=== PATIENT | male | born 1985 | race African-American/Black ===

== ENCOUNTER 2017-11-07 06:28 | Emergency (ER) | payer SELFPAY ==
--- NOTE | 2017-11-07 08:34 | ED Physician Documentation ---
History of Present Illness - Stated complaint Stated Complaint: LUMP ON RT CHEST AREA - Chief complaint Chief Complaint: Wound - Additonal information Additional information: hx from pt 32 male to ED for a mass to R breast - duration unknown but noticed today otherwise feels well Review of Systems Constitutional: denies: Fever, Chills Cardiac: reports: Other (ST mass R breast) PD PAST MEDICAL HISTORY - Past Medical History Past Medical History: Yes Cardiovascular: None Respiratory: None Endocrine/Autoimmune: None Psych: Depression, Schizophrenia - Past Surgical History Past Surgical History: No - Present Medications Home Medications: Ambulatory Orders Medication Instructions Recorded Confirmed [place] Aspartate [Lithate] 12/30/14 07/22/15 chlorproMAZINE [Thorazine] 07/22/15 07/22/15 - Allergies Allergies/Adverse Reactions: Allergies Allergy/AdvReac Type Severity Reaction Status Date / Time No Known Drug Allergies Allergy Verified 11/07/17 06:39 - Social History Does the pt smoke?: Yes Smoking Status: Current every day smoker Does the pt drink ETOH?: Yes Does the pt have substance abuse?: Yes - Immunizations Immunizations are current?: No Immunizations: TDAP >10years/unknown PD ED PE NORMAL - Vitals Vital signs reviewed: Yes - Neck Neck: Supple, no meningeal sign - Cardiac Cardiac: RRR - Respiratory Respiratory: No respiratory distress, Other (small approx [address] mass under aerolea R breast non tender no erythema, no nipple dc, no clavicular or axillar adenopathy) Results - Vitals Vitals: Vital Signs - 24 hr 11/07/17 11/07/17 11/07/17 06:37 09:25 09:49 Temperature 37.0 C Heart Rate 90 79 75 Respiratory 14 18 18 Rate Blood Pressure 136/94 H 133/94 H 128/93 H O2 Saturation 99 94 97 Oxygen O2 Source Room air PD MEDICAL DECISION MAKING - ED course ED course: long ER visit 09/09 I was occupied with another critical pt Departure - Departure Disposition: 01 Home, Self Care Clinical Impression: Gynecomastia, male Condition: Good Follow-Up: Donaldo Sloan MD [Provider Admit Priv/Credential] - Comments: According to the radiologist this mass appears benign As long as it does not change in size or become red warm swollen or painful you do not need to worry about it If it changed or enlarges in any way, you will need to follow up with the surgical clinic for further evaluation such as a biopsy
--- NOTE | 2017-11-07 12:35 | Ultrasound Report ---
RIGHT BREAST ULTRASOUND: 11/07/2017 HISTORY: Right breast mass increasing in size over the last four months. The patient is on antipsychotic medicines. TECHNIQUE: Real-time scanning by the county coroner with me present. Saved static images reviewed. FINDINGS: Corresponding to the subareolar right palpable lump, there is a 1.4 x 0.7 x 0.8 cm hypoechoic region with minimal vascularity having the appearance of gynecomastia. No suspicious cystic or solid mass or abnormal fluid collection is seen. IMPRESSION: Benign finding right breast. Suggest clinical followup. If area continues to enlarge suggest a surgical consult. TD: 11/07/2017 12:34 JOHNNIE
[2017-11-07 13:27] VITALS: BP 105/71
== END 2017-11-07 13:29 | disposition home or self-care (01) ==
LOC: ED 06:28
DX: N62 Hypertrophy of breast (principal)
CPT/HCPCS: 76642; 99282; 99283

== ENCOUNTER 2017-11-15 17:27 | Outpatient (CLI) | payer MEDICAID | END 2017-11-15 17:28 | disposition EMS.NT | LOC: EMS 17:27 | PROVIDERS: ATTEND Surgery | DX: S01.81XA Laceration without foreign body of other part of head, initial encounter (principal); Y04.2XXA Assault by strike against or bumped into by another person, initial encounter ==

== ENCOUNTER 2017-11-15 21:21 | Emergency (ER) | payer MEDICAID ==
[2017-11-15] MEDS ORDERED: LIDOCAINE 1%-EPI 1:100000 20 ML MDV SUBQ STA (23:52)
[2017-11-15] MEDS ORDERED: OLANZapine ODT 5 MG TABLET TL STA (23:52)
[2017-11-16] MEDS ORDERED: IBUPROFEN 600 MG TABLET PO STA (00:03)
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
[2017-11-16 01:07] VITALS: BP 136/78
== END 2017-11-16 01:06 | disposition home or self-care (01) ==
LOC: ED 21:21
DX: S01.81XA Laceration without foreign body of other part of head, initial encounter (principal); Y04.8XXA Assault by other bodily force, initial encounter; F20.0 Paranoid schizophrenia; F17.200 Nicotine dependence, unspecified, uncomplicated
CPT/HCPCS: 12001; 99283; 99284; A9270

== ENCOUNTER 2017-12-24 04:51 | Outpatient (CLI) | payer MEDICAID | END 2017-12-24 04:52 | disposition critical access hospital (66) | LOC: EMS 04:51 | PROVIDERS: ATTEND Surgery | DX: R45.851 Suicidal ideations (principal); R45.850 Homicidal ideations | CPT/HCPCS: A0425; A0429 ==

== ENCOUNTER 2017-12-24 05:08 | Emergency (ER) | payer MEDICAID ==
[2017-12-24 05:53] LABS: BASOPHILS % (AUTO) 0.7 %; EOSINOPHILS % (AUTO) 0.8 %; LYMPHOCYTES % (AUTO) 64.1 %; MEAN CORPUSCULAR HEMOGLOBIN 29.8 pg (27.0-31.0); MEAN CORPUSCULAR HGB CONC 32.2 g/dL (32.0-36.0); MEAN CORPUSCULAR VOLUME 92.6 fL (80.0-94.0); MEAN PLATELET VOLUME 6.9 fL (7.4-11.4); MONOCYTES % (AUTO) 9.2 %; NEUTROPHILS % (AUTO) 25.2 %; PLT - PLATELET COUNT 281 10^3/uL (130-450); RED BLOOD COUNT 4.35 10^6/uL (4.70-6.10); RED CELL DISTRIBUTION WIDTH 15.3 % (12.0-15.0)
--- NOTE | 2017-12-24 05:54 | ED Physician Documentation ---
PD HPI MHE - Stated complaint Stated Complaint: MHE - Chief complaint Chief Complaint: MHE - History obtained from History obtained from: EMS - History of Present Illness Primary symptom: Suicidal ideation Timing - onset: Unknown - Additional information Additional information: was at [facility] tonight, said he was hearing voices and feeling suicidal and thus brought to ED for evaluation. On my evaluation of patient, he appears to be asleep and I cannot wake him with verbal or tactile stimuli; he thus does not contribute to my HPI or ROS. the triaging RN says that when he first arrived, he was talking with her, denied HI but confirmed SI and wants to be hospitalized. Review of Systems Unable to obtain: AMS PD PAST MEDICAL HISTORY - Past Medical History Past Medical History: Yes Cardiovascular: None Respiratory: None Neuro: None Endocrine/Autoimmune: None HEENT: None Psych: Depression, Schizophrenia - Past Surgical History Past Surgical History: No - Present Medications Home Medications: Ambulatory Orders Medication Instructions Recorded Confirmed [place] Aspartate [Lithate] 12/30/14 07/22/15 chlorproMAZINE [Thorazine] 07/22/15 07/22/15 OLANZapine ODT [Zyprexa Odt] 5 mg TL DAILY #10 tablet 11/16/17 - Allergies Allergies/Adverse Reactions: Allergies Allergy/AdvReac Type Severity Reaction Status Date / Time No Known Drug Allergies Allergy Verified 12/24/17 05:20 - Social History Does the pt smoke?: Yes Smoking Status: Current every day smoker Does the pt drink ETOH?: Yes Does the pt have substance abuse?: Yes - Immunizations Immunizations are current?: No Immunizations: TDAP >10years/unknown - POLST Patient has POLST: No PD ED PE NORMAL - Vitals Vital signs reviewed: Yes - General General: No acute distress, Well developed/nourished, Other (does not respond to verbal or tactile stimuli) - HEENT HEENT: PERRL, Moist mucous membranes - Cardiac Cardiac: RRR, No murmur - Respiratory Respiratory: No respiratory distress, Clear bilaterally - Neuro Eye Opening: To Pain Motor: Localizes to Pain Verbal: None GCS Score: 8 Results - Vitals Vitals: Vital Signs - 24 hr 12/24/17 12/24/17 12/24/17 05:13 06:26 06:40 Temperature 36.8 C Heart Rate 53 L Respiratory 16 16 15 Rate Blood Pressure 135/86 H O2 Saturation 98 12/24/17 12/24/17 12/24/17 08:26 11:29 15:13 Temperature 37 C 37.2 C 36.6 C Heart Rate 80 71 66 Respiratory 15 15 14 Rate Blood Pressure 116/75 123/73 112/69 O2 Saturation 97 98 97 12/24/17 12/24/17 17:50 21:54 Temperature 36.6 C 36.2 C L Heart Rate 70 56 L Respiratory 16 16 Rate Blood Pressure 104/65 109/75 O2 Saturation 100 98 Oxygen O2 Source Room air - Labs Labs: Laboratory Tests 12/24/17 12/24/17 12/24/17 05:40 05:40 06:54 WBC 3.0 L RBC 4.35 L Hgb 13.0 L Hct 40.3 L MCV 92.6 MCH 29.8 MCHC 32.2 RDW 15.3 H Plt Count 281 MPV 6.9 L Neut # Not Reportable Lymph # Not Reportable [place] # Not Reportable Eos # Not Reportable Baso # Not Reportable Absolute Nucleated RBC Not Reportable Total Counted 50 Band Neuts % (Manual) 0 Reactive Lymphs % (Man) 20 Abnorm Lymph % (Manual) 0 Nucleated RBC % Not Reportable Neutrophils # (Manual) 0.7 L Lymphocytes # (Manual) 1.8 Monocytes # (Manual) 0.4 Eosinophils # (Manual) 0.1 Basophils # (Manual) 0.0 Differential Comment MANUAL DIFFERENTIAL Manual Slide Review Indicated Platelet Estimate NORMAL (130-450,000) Platelet Morphology 1+ LARGE PLATELETS RBC Morph Micro Appear NORMAL APPEARANCE Sodium 138 Potassium 3.3 L Chloride 108 Carbon Dioxide 24 Anion Gap 6.0 BUN 9 Creatinine 0.8 Estimated GFR (MDRD) 136 Glucose 135 H Calcium 8.4 L Urine Color YELLOW Urine Clarity CLEAR Urine pH 6.0 Ur Specific [place] >=1.030 H Urine Protein NEGATIVE Urine Glucose (UA) NEGATIVE Urine Ketones NEGATIVE Urine Occult Blood LARGE H Urine Nitrite NEGATIVE Urine Bilirubin NEGATIVE Urine Urobilinogen 1 (NORMAL) Ur Leukocyte Esterase NEGATIVE Urine RBC 6-10 H Urine WBC 0-3 Ur Epithelial Cells FEW Transitional Ur Squamous Epith Cells RARE Squamous Urine Bacteria Few Urine Mucus Few Strands Ur Microscopic Review INDICATED Urine Culture Comments NOT INDICATED Salicylates < 6.0 Urine Opiates Screen NEGATIVE Ur Oxycodone Screen NEGATIVE Urine Methadone Screen NEGATIVE Ur Propoxyphene Screen NEGATIVE Acetaminophen < 10 L Ur Barbiturates Screen NEGATIVE Ur Tricyclics Screen NEGATIVE Ur Phencyclidine Scrn NEGATIVE Ur Amphetamine Screen POSITIVE H U Methamphetamines Scrn POSITIVE H U Benzodiazepines Scrn NEGATIVE Urine Cocaine Screen POSITIVE H U Cannabinoids Screen POSITIVE H Ethyl Alcohol < 5.0 PD MEDICAL DECISION MAKING - ED course Complexity details: reviewed old records, reviewed results, re-evaluated patient , considered differential ED course: during ED stay, patient became awake and alert (transitioned rapidly from his previous somnolence). medically cleared for SW consult. Case turned over to Dr. Worley at end of my shift (7 AM) pending SW evaluation. Departure - Departure Disposition: 65 Psych Hosp/Unit DC/Xfer Clinical Impression: Depression, Suicidal ideation Condition: Stable Discharge Date/Time: 12/24/17 21:51
[2017-12-24 06:00] LABS: ABNORMAL LYMPHS % (MANUAL) 0 %; BAND NEUTROPHILS % (MANUAL) 0 %
[2017-12-24 06:03] LABS: BUN - BLOOD UREA NITROGEN 9 mg/dL (6-20); CALCIUM 8.4 mg/dL (8.5-10.3); CARBON DIOXIDE - CO2 24 mmol/L (21-32); CHLORIDE 108 mmol/L (101-111); CREATININE 0.8 mg/dL (0.6-1.2); GFR - MDRD 136 (>89); GLUCOSE 135 mg/dL (70-100); SALICYLATE < 6.0 mg/dL; SODIUM 138 mmol/L (135-145)
[2017-12-24 06:04] LABS: ACETAMINOPHEN < 10 ug/mL (10-30)
[2017-12-24 06:22] LABS: EOSINOPHILS # (MANUAL) 0.1 10^3/uL (0-0.7); LYMPHOCYTES # (MANUAL) 1.8 10^3/uL (1.5-3.5); LYMPHOCYTES % (MANUAL) 40 %; MONOCYTES # (MANUAL) 0.4 10^3/uL (0.0-1.0); NEUTROPHILS # (MANUAL) 0.7 10^3/uL (1.5-6.6); NEUTROPHILS % (MANUAL) 24 %
[2017-12-24 06:24] LABS: DIFFERENTIAL COMMENT MANUAL DIFFERENTIAL; PLATELET ESTIMATE, MANUAL NORMAL (130-450,000) (NORMAL); PLATELET MORPHOLOGY 1+ LARGE PLATELETS (NORMAL); RBC MORPHOLOGY (MULTIPLE) NORMAL APPEARANCE (NORMAL)
[2017-12-24 07:00] LABS: MUDS CUTOFF CONCENTRATIONS CUTOFF CONC BELOW:
[2017-12-24 07:03] LABS: BILIRUBIN,URINE NEGATIVE (NEGATIVE); GLUCOSE, URINE (UA) NEGATIVE (NEGATIVE); KETONES,URINE (UA) NEGATIVE (NEGATIVE); LEUKOCYTE ESTERASE, URINE NEGATIVE (NEGATIVE); NITRITE,URINE NEGATIVE (NEGATIVE); OCCULT BLOOD,URINE LARGE (NEGATIVE); PROTEIN,URINE NEGATIVE (NEGATIVE); UROBILINOGEN,URINE 1 (NORMAL) E.U./dL (NORMAL)
[2017-12-24 07:04] LABS: CLARITY,URINE CLEAR (CLEAR)
[2017-12-24 07:11] LABS: SQUAMOUS EPITHELIAL CELL,UR RARE Squamous (<= Few)
[2017-12-24 07:12] LABS: BACTERIA,URINE Few /HPF (None Seen); EPITHELIAL CELLS,UR FEW Transitional /HPF (<= Few); MUCUS,URINE Few Strands
[2017-12-24 07:15] LABS: AMPHETAMINE SCREEN,URINE POSITIVE (NEGATIVE); BENZODIAZEPINES SCREEN, URINE NEGATIVE (NEGATIVE); COCAINE SCREEN URINE POSITIVE (NEGATIVE); METHADONE SCREEN, URINE NEGATIVE (NEGATIVE); METHAMPHETAMINES SCREEN, URINE POSITIVE (NEGATIVE); OPIATE SCREEN, URINE NEGATIVE (NEGATIVE); OXYCODONE SCREEN, URINE NEGATIVE (NEGATIVE); PROPOXYPHENE SCREEN, URINE NEGATIVE (NEGATIVE); TRICYCLIC ANTIDEPRESSANT,URINE NEGATIVE (NEGATIVE)
--- NOTE | 2017-12-24 16:44 | ED Physician Documentation ---
ED Addendum - Addendum Addendum: 12/24/17 16:43 Patient evaluated by DANII, and will be transferred to [facility]. Accepted by Alea VICKERS @[facility]. CHANCERA forms completed. Departure - Departure Disposition: 02 Transfer Acute Care Hosp Clinical Impression: Suicidal ideation Depression Qualifiers: Depression Type: unspecified Qualified Code(s): F32.9 - Major depressive disorder, single episode, unspecified Condition: Stable
[2017-12-24 21:56] VITALS: BP 109/75
== END 2017-12-24 21:51 ==
LOC: EDUNIT# → ED 05:08
DX: R45.851 Suicidal ideations (principal); R41.82 Altered mental status, unspecified; F32.9 Major depressive disorder, single episode, unspecified; F20.9 Schizophrenia, unspecified; F17.200 Nicotine dependence, unspecified, uncomplicated
CPT/HCPCS: 36415; 80048; 80306; 80307; 80320; 80329; 81001; 81003; 85025; 87086; 99284; 99285

== ENCOUNTER 2018-05-08 10:30 | Emergency (ER) | payer MEDICAID ==
[2018-05-08] MEDS ORDERED: AZITHROMYCIN 250 MG TABLET PO STA (12:24)
[2018-05-08] MEDS ORDERED: LITHIUM 150 MG CAPSULE PO STA (12:24)
[2018-05-08] MEDS ORDERED: cefTRIAXone 250 MG VIAL IM STA (12:24)
[2018-05-08] MEDS ORDERED: LIDOCAINE 1% 2 ML VIAL SUBQ ONE (12:24)
--- NOTE | 2018-05-08 12:27 | ED Physician Documentation ---
PD HPI MHE - Stated complaint Stated Complaint: MHE - Chief complaint Chief Complaint: MHE - History obtained from History obtained from: Patient - History of Present Illness Primary symptom: Homicidal ideation (This is a 33-year-old gentleman with history of schizophrenia who was dropped off and quickly left by his father for suicidal and homicidal ideation. He admits to both of these, but will not give me details. He also would like to go to [facility]. He has specific concerns about STDs and would like a shot for that. He denies urethral discharge, just high risk sexual activity.) Review of Systems Ten Systems: 10 systems reviewed and negative Constitutional: denies: Fever, Chills : denies: Dysuria, Frequency Skin: reports: Reviewed and negative PD PAST MEDICAL HISTORY - Past Medical History Cardiovascular: None Respiratory: None Neuro: None Endocrine/Autoimmune: None HEENT: None Psych: Depression, Schizophrenia - Past Surgical History Past Surgical History: No - Present Medications Home Medications: Ambulatory Orders Medication Instructions Recorded Confirmed [place] Aspartate [Lithate] 12/30/14 07/22/15 chlorproMAZINE [Thorazine] 07/22/15 07/22/15 OLANZapine ODT [Zyprexa Odt] 5 mg TL DAILY #10 tablet 11/16/17 - Allergies Allergies/Adverse Reactions: Allergies Allergy/AdvReac Type Severity Reaction Status Date / Time No Known Drug Allergies Allergy Verified 05/08/18 10:45 - Social History Does the pt smoke?: Yes Smoking Status: Current every day smoker Does the pt drink ETOH?: Yes Does the pt have substance abuse?: Yes - Family History Family history: reports: Non contributory - Immunizations Immunizations are current?: No Immunizations: TDAP >10years/unknown - POLST Patient has POLST: No PD ED PE NORMAL - Vitals Vital signs reviewed: Yes - General General: Alert and oriented X 3, Other (Tangential historian with slow speech. Decent eye contact. Tangential and talking about God and somewhat hypersexual.) - HEENT HEENT: PERRL, EOMI - Neck Neck: Supple, no meningeal sign, No bony TTP - Cardiac Cardiac: RRR, No murmur - Respiratory Respiratory: No respiratory distress, Clear bilaterally - Abdomen Abdomen: Normal bowel sounds, Soft, Non tender - Back Back: No CVA TTP, No spinal TTP - Derm Derm: Normal color, Warm and dry - Extremities Extremities: No deformity, No edema, No calf tenderness / cord - Neuro Neuro: Alert and oriented X 3, Normal speech Results - Vitals Vitals: Vital Signs - 24 hr 05/08/18 10:39 Temperature 36.5 C Heart Rate 110 H Respiratory 18 Rate Blood Pressure 156/96 H O2 Saturation 98 Oxygen O2 Source Room air - Labs Labs: Laboratory Tests 05/08/18 05/08/18 05/08/18 12:46 12:46 12:46 WBC 5.0 RBC 4.74 Hgb 14.8 Hct 43.1 MCV 90.8 MCH 31.1 H MCHC 34.3 RDW 14.0 Plt Count 170 MPV 7.4 Neut # (Auto) 2.2 Lymph # (Auto) 2.3 [place] # (Auto) 0.4 Eos # (Auto) 0.1 Baso # (Auto) 0.0 Absolute Nucleated RBC 0.01 Nucleated RBC % 0.1 Sodium 138 Potassium 3.5 Chloride 103 Carbon Dioxide 26 Anion Gap 9.0 BUN 12 Creatinine 1.0 Estimated GFR (MDRD) 104 Glucose 93 Calcium 9.2 Total Bilirubin 1.2 H AST 27 ALT 17 Alkaline Phosphatase 55 Total Protein 7.3 Albumin 4.9 Globulin 2.4 Albumin/Globulin Ratio 2.0 Lipase 34 TSH 0.87 Urine Color Urine Clarity Urine pH Ur Specific [place] Urine Protein Urine Glucose (UA) Urine Ketones Urine Occult Blood Urine Nitrite Urine Bilirubin Urine Urobilinogen Ur Leukocyte Esterase Ur Microscopic Review Urine Culture Comments Last Dose Date Last Dose Time Salicylates < 6.0 Urine Opiates Screen Ur Oxycodone Screen Urine Methadone Screen Ur Propoxyphene Screen Acetaminophen < 10 L Ur Barbiturates Screen Ur Tricyclics Screen Ur Phencyclidine Scrn Ur Amphetamine Screen U Methamphetamines Scrn U Benzodiazepines Scrn [place] Urine Cocaine Screen U Cannabinoids Screen Ethyl Alcohol < 5.0 05/08/18 05/08/18 12:46 13:15 WBC RBC Hgb Hct MCV MCH MCHC RDW Plt Count MPV Neut # (Auto) Lymph # (Auto) [place] # (Auto) Eos # (Auto) Baso # (Auto) Absolute Nucleated RBC Nucleated RBC % Sodium Potassium Chloride Carbon Dioxide Anion Gap BUN Creatinine Estimated GFR (MDRD) Glucose Calcium Total Bilirubin AST ALT Alkaline Phosphatase Total Protein Albumin Globulin Albumin/Globulin Ratio Lipase TSH Urine Color YELLOW Urine Clarity CLEAR Urine pH 6.0 Ur Specific [place] 1.020 Urine Protein NEGATIVE Urine Glucose (UA) NEGATIVE Urine Ketones NEGATIVE Urine Occult Blood NEGATIVE Urine Nitrite NEGATIVE Urine Bilirubin NEGATIVE Urine Urobilinogen 0.2 (NORMAL) Ur Leukocyte Esterase NEGATIVE Ur Microscopic Review NOT INDICATED Urine Culture Comments NOT INDICATED Last Dose Date UNK Last Dose Time UNK Salicylates Urine Opiates Screen NEGATIVE Ur Oxycodone Screen NEGATIVE Urine Methadone Screen NEGATIVE Ur Propoxyphene Screen NEGATIVE Acetaminophen Ur Barbiturates Screen NEGATIVE Ur Tricyclics Screen NEGATIVE Ur Phencyclidine Scrn NEGATIVE Ur Amphetamine Screen POSITIVE H U Methamphetamines Scrn POSITIVE H U Benzodiazepines Scrn POSITIVE H [place] < 0.05 Urine Cocaine Screen NEGATIVE U Cannabinoids Screen NEGATIVE Ethyl Alcohol PD MEDICAL DECISION MAKING - ED course ED course: 33-year-old gentleman with history of underlying psychiatric disorder presents with exacerbation. Seen initially by the social welfare clerk because he did want to go to [facility]. [facility] would not accept him because of prior behaviors at that hospital. The [facility] was called and detained him to [place] and cobras were completed. Of note he also had concerns about STDs. Gonorrhea and chlamydia was sent and he was administered Rocephin IM and Zithromax p.o. - Sepsis Event Vital Signs: Vital Signs - 24 hr 05/08/18 10:39 Temperature 36.5 C Heart Rate 110 H Respiratory 18 Rate Blood Pressure 156/96 H O2 Saturation 98 Oxygen O2 Source Room air Departure - Departure Disposition: 65 Psych Hosp/Unit DC/Xfer Clinical Impression: Urethritis Schizoaffective disorder Qualifiers: Schizoaffective disorder type: unspecified Qualified Code(s): F25.9 - Schizoaffective disorder, unspecified Condition: Stable
[2018-05-08 13:07] LABS: BASOPHILS % (AUTO) 0.8 %; EOSINOPHILS # (AUTO) 0.1 10^3/uL (0.0-0.7); HGB - HEMOGLOBIN 14.8 g/dL (14.0-18.0); LYMPHOCYTES # (AUTO) 2.3 10^3/uL (1.5-3.5); LYMPHOCYTES % (AUTO) 45.7 %; MEAN CORPUSCULAR HEMOGLOBIN 31.1 pg (27.0-31.0); MEAN CORPUSCULAR HGB CONC 34.3 g/dL (32.0-36.0); MEAN CORPUSCULAR VOLUME 90.8 fL (80.0-94.0); MEAN PLATELET VOLUME 7.4 fL (7.4-11.4); MONOCYTES # (AUTO) 0.4 10^3/uL (0.0-1.0); MONOCYTES % (AUTO) 8.5 %; NEUTROPHILS # (AUTO) 2.2 10^3/uL (1.5-6.6); PLT - PLATELET COUNT 170 10^3/uL (130-450); RED BLOOD COUNT 4.74 10^6/uL (4.70-6.10)
[2018-05-08 13:22] LABS: ALBUMIN 4.9 g/dL (3.2-5.5); ALKALINE PHOSPHATASE 55 IU/L (42-121); ALT ALANINE AMINOTRANSFERASE 17 IU/L (10-60); AST ASPARTATE AMINOTRANSFERASE 27 IU/L (10-42); BILIRUBIN,TOTAL 1.2 mg/dL (0.2-1.0); BUN - BLOOD UREA NITROGEN 12 mg/dL (6-20); CALCIUM 9.2 mg/dL (8.5-10.3); CARBON DIOXIDE - CO2 26 mmol/L (21-32); CHLORIDE 103 mmol/L (101-111); GFR - MDRD 104 (>89); GLUCOSE 93 mg/dL (70-100); LIPASE 34 U/L (22-51); SALICYLATE < 6.0 mg/dL; SODIUM 138 mmol/L (135-145); TOTAL PROTEIN 7.3 g/dL (6.7-8.2)
[2018-05-08 13:25] LABS: ACETAMINOPHEN < 10 ug/mL (10-30)
[2018-05-08] MEDS ORDERED: HALOPERIDOL 1 MG TABLET PO STA (13:25)
[2018-05-08 13:26] LABS: MUDS CUTOFF CONCENTRATIONS CUTOFF CONC BELOW:
[2018-05-08 13:27] LABS: BILIRUBIN,URINE NEGATIVE (NEGATIVE); GLUCOSE, URINE (UA) NEGATIVE (NEGATIVE); KETONES,URINE (UA) NEGATIVE (NEGATIVE); LEUKOCYTE ESTERASE, URINE NEGATIVE (NEGATIVE); NITRITE,URINE NEGATIVE (NEGATIVE); OCCULT BLOOD,URINE NEGATIVE (NEGATIVE); PROTEIN,URINE NEGATIVE (NEGATIVE); UROBILINOGEN,URINE 0.2 (NORMAL) E.U./dL (NORMAL)
[2018-05-08 13:43] LABS: CLARITY,URINE CLEAR (CLEAR); COCAINE SCREEN URINE NEGATIVE (NEGATIVE); METHAMPHETAMINES SCREEN, URINE POSITIVE (NEGATIVE); OPIATE SCREEN, URINE NEGATIVE (NEGATIVE)
[2018-05-08 13:44] LABS: AMPHETAMINE SCREEN,URINE POSITIVE (NEGATIVE); BENZODIAZEPINES SCREEN, URINE POSITIVE (NEGATIVE); METHADONE SCREEN, URINE NEGATIVE (NEGATIVE); OXYCODONE SCREEN, URINE NEGATIVE (NEGATIVE); PROPOXYPHENE SCREEN, URINE NEGATIVE (NEGATIVE); TRICYCLIC ANTIDEPRESSANT,URINE NEGATIVE (NEGATIVE)
[2018-05-08 14:18] LABS: LITHIUM < 0.05 mmol/L
[2018-05-08] MEDS ORDERED: OLANZapine ODT 5 MG TABLET TL STA (19:36)
[2018-05-09 08:57] VITALS: BP 128/68
[2018-05-09] MEDS ORDERED: HALOPERIDOL 1 MG TABLET PO SCH (09:00)
--- NOTE | 2018-05-09 09:00 | ED Physician Documentation ---
ED Addendum - Addendum Addendum: 05/09/18 08:59 assumed care 05/09/18 pt has been detained and placed in vol at [facility], EMS due to arrive at 9 AM pt sleeping filled out third of 3 COBRA forms for [facility]
== END 2018-05-09 09:43 ==
LOC: ED 10:30
DX: N34.2 Other urethritis (principal); F25.9 Schizoaffective disorder, unspecified; F17.200 Nicotine dependence, unspecified, uncomplicated
CPT/HCPCS: 36415; 80053; 80178; 80306; 80307; 80320; 80329; 81003; 83690; 84443; 85025; 87491; 87591; 96372; 99283; 99285; A9270; 81001; 87086

== ENCOUNTER 2018-05-19 07:13 | Outpatient (CLI) | payer MEDICAID | END 2018-05-19 07:14 | disposition critical access hospital (66) | LOC: EMS 07:13 | PROVIDERS: ATTEND Surgery | DX: R41.82 Altered mental status, unspecified (principal) | CPT/HCPCS: A0425; A0429; A0999 ==

== ENCOUNTER 2018-05-19 07:29 | Emergency (ER) | payer MEDICAID ==
[2018-05-19 07:49] LABS: BASOPHILS % (AUTO) 0.8 %; EOSINOPHILS # (AUTO) 0.1 10^3/uL (0.0-0.7); EOSINOPHILS % (AUTO) 1.5 %; HGB - HEMOGLOBIN 14.2 g/dL (14.0-18.0); LYMPHOCYTES # (AUTO) 1.8 10^3/uL (1.5-3.5); LYMPHOCYTES % (AUTO) 34.2 %; MEAN CORPUSCULAR HEMOGLOBIN 31.4 pg (27.0-31.0); MEAN CORPUSCULAR VOLUME 92.2 fL (80.0-94.0); MEAN PLATELET VOLUME 6.9 fL (7.4-11.4); MONOCYTES # (AUTO) 0.3 10^3/uL (0.0-1.0); MONOCYTES % (AUTO) 4.9 %; NEUTROPHILS # (AUTO) 3.1 10^3/uL (1.5-6.6); NEUTROPHILS % (AUTO) 58.6 %; PLT - PLATELET COUNT 236 10^3/uL (130-450); RED BLOOD COUNT 4.52 10^6/uL (4.70-6.10); RED CELL DISTRIBUTION WIDTH 14.2 % (12.0-15.0); WHITE BLOOD COUNT 5.3 x10^3/uL (4.8-10.8)
[2018-05-19 08:17] LABS: ALBUMIN/GLOBULIN RATIO 1.5 (1.0-2.2); ALKALINE PHOSPHATASE 53 IU/L (42-121); ALT ALANINE AMINOTRANSFERASE 16 IU/L (10-60); AST ASPARTATE AMINOTRANSFERASE 16 IU/L (10-42); BILIRUBIN,TOTAL 0.6 mg/dL (0.2-1.0); BUN - BLOOD UREA NITROGEN 10 mg/dL (6-20); CALCIUM 8.8 mg/dL (8.5-10.3); CARBON DIOXIDE - CO2 27 mmol/L (21-32); CHLORIDE 102 mmol/L (101-111); CREATININE 0.9 mg/dL (0.6-1.2); GFR - MDRD 118 (>89); GLUCOSE 102 mg/dL (70-100); LIPASE 21 U/L (22-51); SALICYLATE < 6.0 mg/dL; SODIUM 137 mmol/L (135-145); TOTAL PROTEIN 6.6 g/dL (6.7-8.2)
[2018-05-19 08:24] LABS: ACETAMINOPHEN < 10 ug/mL (10-30)
--- NOTE | 2018-05-19 08:45 | XRAY Report ---
Reason: chest pain Procedure Date: 05/19/2018 Accession Number: [id number] / [id number] Procedure: XR - Chest 1 View X-Ray CPT Code: 68657 FULL RESULT: EXAM: CHEST RADIOGRAPHY EXAM DATE: 05/19/2018 08:09 AM. CLINICAL HISTORY: Chest Pain. COMPARISON: 07/01/2012 12:56 PM. TECHNIQUE: 1 view. FINDINGS: Lungs/Pleura: No focal opacities evident. No pleural effusion. No pneumothorax. Mediastinum: Within exam limitations, the cardiomediastinal contour is normal. Other: None. IMPRESSION: Normal single view chest. RADIA
--- NOTE | 2018-05-19 08:45 | CT Report ---
Reason: ams, fall? Procedure Date: 05/19/2018 Accession Number: [id number] / [id number] Procedure: CT - Head W/O CPT Code: FULL RESULT: EXAM: CT HEAD EXAM DATE: 05/19/2018 08:15 AM. CLINICAL HISTORY: Transient alteration in awareness. COMPARISON: HEAD W/O 05/19/2018 8:04 AM. TECHNIQUE: Multiaxial CT images were obtained from the foramen magnum to the vertex. Reformats: Sagittal and coronal. IV contrast: None. In accordance with CT protocol optimization, one or more of the following dose reduction techniques were utilized for this exam: automated exposure control, adjustment of mA and/or KV based on patient size, or use of iterative reconstructive technique. FINDINGS: Parenchyma: No intraparenchymal hemorrhage. No evidence of mass, midline shift, or CT findings of infarction. [place]-white differentiation is distinct. Extraaxial Spaces: Normal for age. No subdural or epidural collections identified. Ventricles: Normal in size and position. Sinuses and Orbits: Mild ethmoid sinus disease is seen. No air-fluid levels are demonstrated. Orbits appear intact. Bones: No evidence of fracture or calvarial defect. Other: None. IMPRESSION: 1. No intracranial abnormality demonstrated. 2. Mild ethmoid sinus disease. RADIA
[2018-05-19 08:47] LABS: MUDS CUTOFF CONCENTRATIONS CUTOFF CONC BELOW:
[2018-05-19 08:52] LABS: BILIRUBIN,URINE NEGATIVE (NEGATIVE); GLUCOSE, URINE (UA) NEGATIVE (NEGATIVE); KETONES,URINE (UA) NEGATIVE (NEGATIVE); LEUKOCYTE ESTERASE, URINE NEGATIVE (NEGATIVE); NITRITE,URINE NEGATIVE (NEGATIVE); OCCULT BLOOD,URINE SMALL (NEGATIVE); PROTEIN,URINE NEGATIVE (NEGATIVE); UROBILINOGEN,URINE 0.2 (NORMAL) E.U./dL (NORMAL)
--- NOTE | 2018-05-19 08:59 | ED Physician Documentation ---
PD HPI ALTERED MENTAL STATUS - Stated complaint Stated Complaint: ALOC - Chief complaint Chief Complaint: Neuro - History obtained from History obtained from: EMS - History of Present Illness Timing - onset: Unknown Timing - details: Still present, Still present in ED Quality / character: Unresponsive Associated symptoms: Other (UNKNOWN) Contributing factors: Known psych illness Basline status: Alert and oriented X [address] [employer]: Accucheck, Narcan, C spine immobilization Similar symptoms before: Diagnosis, Work up / diagnostics Recently seen: Clinic, Transferred - Additional information Additional information: Per EMS received a call from police regarding an unresponsive male found on the ground face down. No other information available from the police or EMS. EMS and ED staff here know pt. They said he has a psych history and was sent to [facility] last week. Review of Systems Unable to obtain: Unresponsive, [place] PD PAST MEDICAL HISTORY - Past Medical History Past Medical History: Yes Cardiovascular: None Respiratory: None Neuro: None Endocrine/Autoimmune: None HEENT: None Psych: Depression, Schizophrenia - Past Surgical History Past Surgical History: No - Present Medications Home Medications: Ambulatory Orders Medication Instructions Recorded Confirmed RX: [place] Aspartate [Lithate] 12/30/14 07/22/15 chlorproMAZINE [Thorazine] 07/22/15 07/22/15 OLANZapine ODT [Zyprexa Odt] 5 mg TL DAILY #10 tablet 11/16/17 - Allergies Allergies/Adverse Reactions: Allergies Allergy/AdvReac Type Severity Reaction Status Date / Time No Known Drug Allergies Allergy Verified 05/19/18 07:40 - Living Situation Living Situation: reports: Unknown Living Arrangement: reports: Unknown - Social History Does the pt smoke?: Yes Smoking Status: Current every day smoker Does the pt drink ETOH?: Yes Does the pt have substance abuse?: Yes Substance Use and Type: Meth, Cocaine/Crack - Family History Family history: reports: Non contributory - Immunizations Immunizations are current?: No Immunizations: TDAP >10years/unknown - POLST Patient has POLST: No PD ED PE NORMAL - Vitals Vital signs reviewed: Yes - General General: No acute distress, Well developed/nourished - HEENT HEENT: PERRL, Ears normal, Moist mucous membranes - Neck Neck: Other (Hard c-collar maintained.) - Cardiac Cardiac: RRR, No murmur, Strong equal pulses - Respiratory Respiratory: No respiratory distress, Clear bilaterally - Abdomen Abdomen: Normal bowel sounds, Soft, Non tender, Non distended - Back Back: No spinal TTP - Derm Derm: Normal color, Warm and dry, No rash - Extremities Extremities: No deformity, No tenderness to palpate, No edema - Neuro Neuro: Other (Pt moans to painful stimuli. Follows simple commands when firmly and loudly instructed such as opening his eyes and squeezing my hands and keep his legs up. Does not answer questions. Sonorous when sleeping.) Eye Opening: To Pain Motor: Withdraws to Pain Verbal: Incomprehensible GCS Score: 8 Results - Vitals Vitals: Vital Signs - 24 hr 05/19/18 05/19/18 05/19/18 07:31 07:54 08:17 Heart Rate 65 51 L 50 L Respiratory 20 16 14 Rate Blood Pressure 136/97 H 140/100 H 139/96 H O2 Saturation 100 100 100 Oxygen O2 Source Nasal cannula - EKG (time done) 0737 Rate: Rate (enter#) (50) Rhythm: Sinus bradycardia [place]: Normal Intervals: Normal [place] QRS: Normal Ischemia: Normal ST segments - Labs Labs: Laboratory Tests 05/19/18 05/19/18 05/19/18 07:45 07:45 07:45 WBC 5.3 RBC 4.52 L Hgb 14.2 Hct 41.7 L MCV 92.2 MCH 31.4 H MCHC 34.0 RDW 14.2 Plt Count 236 MPV 6.9 L Neut # (Auto) 3.1 Lymph # (Auto) 1.8 [place] # (Auto) 0.3 Eos # (Auto) 0.1 Baso # (Auto) 0.0 Absolute Nucleated RBC 0.00 Nucleated RBC % 0.1 Sodium 137 Potassium 4.0 Chloride 102 Carbon Dioxide 27 Anion Gap 8.0 BUN 10 Creatinine 0.9 Estimated GFR (MDRD) 118 Glucose 102 H Calcium 8.8 Total Bilirubin 0.6 AST 16 ALT 16 Alkaline Phosphatase 53 Total Protein 6.6 L Albumin 4.0 Globulin 2.6 Albumin/Globulin Ratio 1.5 Lipase 21 L TSH 0.68 Salicylates < 6.0 Acetaminophen < 10 L Ethyl Alcohol < 5.0 PD MEDICAL DECISION MAKING - ED course Complexity details: re-evaluated patient (0825 Sleeping and snoring. VSS. 1313 Pt woke up, alert. He wanted to know where he is and how he got here. Pt denies drinking alcohol or taking drugs last night. Pt informed of test results. Stated he wants food and wants to go home. He will call someone to pick him up. Pt seems to be impatient and demanding. When he does not get what he wants (food) immediately he starts banging the tray table and he would start walking to the nursing station demanding. Per staff this is pt's normal behavior.), considered differential (alcohol intoxication, drug abuse, catatonia, SAH, SDH, ICB, sepsis, [place] tox), d/w patient Departure - Departure Disposition: 01 Home, Self Care Clinical Impression: Altered mental status Qualifiers: Altered mental status type: transient alteration of awareness Qualified Code(s): R40.4 - Transient alteration of awareness Schizophrenia Qualifiers: Schizophrenia type: unspecified Qualified Code(s): F20.9 - Schizophrenia, unspecified Condition: Good Instructions: ED Altered Loc Comments: CALL YOUR PCP FOR REEVALUATION A.S.A.P. MAINTAIN SAFETY. IF WORSE RETURN TO THE E.R. Discharge Date/Time: 05/19/18 14:38
[2018-05-19 09:01] LABS: CLARITY,URINE CLEAR (CLEAR)
[2018-05-19 09:02] LABS: AMPHETAMINE SCREEN,URINE POSITIVE (NEGATIVE); COCAINE SCREEN URINE POSITIVE (NEGATIVE); TRICYCLIC ANTIDEPRESSANT,URINE POSITIVE (NEGATIVE)
[2018-05-19 09:03] LABS: BENZODIAZEPINES SCREEN, URINE NEGATIVE (NEGATIVE); METHADONE SCREEN, URINE NEGATIVE (NEGATIVE); METHAMPHETAMINES SCREEN, URINE NEGATIVE (NEGATIVE); OPIATE SCREEN, URINE NEGATIVE (NEGATIVE); OXYCODONE SCREEN, URINE NEGATIVE (NEGATIVE); PROPOXYPHENE SCREEN, URINE NEGATIVE (NEGATIVE)
[2018-05-19 09:07] LABS: BACTERIA,URINE Rare /HPF (None Seen); RBC,URINE 0-5 /HPF (0-5); SQUAMOUS EPITHELIAL CELL,UR NONE SEEN (<= Few)
[2018-05-19 10:27] LABS: LITHIUM < 0.05 mmol/L
--- NOTE | 2018-05-19 13:07 | CT Report ---
Reason: ams, fall? Procedure Date: 05/19/2018 Accession Number: [id number] / [id number] Procedure: CT - Cervical Spine W/O CPT Code: FULL RESULT: EXAM: CT CERVICAL SPINE WITHOUT CONTRAST DATE: 05/19/2018 08:15 AM. HISTORY: Ams, fall?. COMPARISONS: None. TECHNIQUE: Thin-section axial images were acquired of the cervical spine without contrast. Post-processing: Coronal and sagittal reformats. Other: None. In accordance with CT protocol optimization, one or more of the following dose reduction techniques were utilized for this exam: automated exposure control, adjustment of mA and/or KV based on patient size, or use of iterative reconstructive technique. FINDINGS: Alignment: No scoliosis or spondylolisthesis. Bones: No fracture or bone lesion. Interspace Levels/Facets: Disk space is well preserved. No significant degenerative changes. Musculature: Unremarkable. Other: The paravertebral and prevertebral soft tissues are unremarkable. The lung apices are clear. IMPRESSION: No acute disease. RADIA
[2018-05-19 13:15] VITALS: BP 128/97
== END 2018-05-19 14:38 | disposition home or self-care (01) ==
LOC: EDUNIT# → ED 07:29
DX: R40.4 Transient alteration of awareness (principal); F20.9 Schizophrenia, unspecified
CPT/HCPCS: 36415; 70450; 71045; 72125; 80053; 80178; 80306; 80307; 80320; 80329; 81001; 81003; 83605; 83690; 84443; 85025; 87086; 93005; 99283; 99284

== ENCOUNTER 2018-05-27 09:46 | Outpatient (CLI) | payer MEDICAID | END 2018-05-27 09:47 | disposition critical access hospital (66) | LOC: EMS 09:46 | PROVIDERS: ATTEND Surgery | DX: R44.1 Visual hallucinations (principal) | CPT/HCPCS: A0425; A0429; A0999 ==

== ENCOUNTER 2018-05-27 10:04 | Emergency (ER) | payer MEDICAID ==
[2018-05-27 10:13] VITALS: BP 135/102
== END 2018-05-27 11:15 | disposition left against medical advice (07) ==
LOC: EDUNIT# → ED 10:04
DX: Z53.21 Procedure and treatment not carried out due to patient leaving prior to being seen by health care provider (principal)
CPT/HCPCS: 99283

== ENCOUNTER 2018-07-30 13:58 | Outpatient (CLI) | payer MEDICAID | END 2018-07-30 13:59 | disposition critical access hospital (66) | LOC: EMS 13:58 | PROVIDERS: ATTEND Surgery | DX: R45.851 Suicidal ideations (principal); R45.850 Homicidal ideations | CPT/HCPCS: A0425; A0429 ==

== ENCOUNTER 2018-07-30 14:12 | Emergency (ER) | payer MEDICAID ==
[2018-07-30] MEDS ORDERED: HALOPERIDOL 5 MG/ML VIAL IM STA (14:18)
--- NOTE | 2018-07-30 14:21 | ED Physician Documentation ---
PD HPI MHE - Stated complaint Stated Complaint: SI/HI - History obtained from History obtained from: Patient, EMS - History of Present Illness Primary symptom: Suicidal ideation, Homicidal ideation, Off meds Timing - onset: Other (This is a 33-year-old gentleman with schizophrenia. He has a history of violent behavior and states that he needs to be admitted to [facility] for stabilization and needs medications. He is supposed to be taking Risperdal and Haldol. He is somewhat uncooperative on initial examination because his bag has been confiscated per hospital policy and because of that is not a cooperative historian.) Review of Systems Unable to obtain: Uncooperative PD PAST MEDICAL HISTORY - Past Medical History Cardiovascular: None Respiratory: None Neuro: None Endocrine/Autoimmune: None HEENT: None Psych: Depression, Schizophrenia - Past Surgical History Past Surgical History: No - Present Medications Home Medications: Ambulatory Orders Medication Instructions Recorded Confirmed RX: [place] Aspartate [Lithate] 12/30/14 07/22/15 chlorproMAZINE [Thorazine] 07/22/15 07/22/15 OLANZapine ODT [Zyprexa Odt] 5 mg TL DAILY #10 tablet 11/16/17 - Allergies Allergies/Adverse Reactions: Allergies Allergy/AdvReac Type Severity Reaction Status Date / Time No Known Drug Allergies Allergy Verified 07/30/18 14:21 - Social History Does the pt smoke?: Yes Smoking Status: Current every day smoker Does the pt drink ETOH?: Yes Does the pt have substance abuse?: Yes - Immunizations Immunizations are current?: No Immunizations: TDAP >10years/unknown - POLST Patient has POLST: No PD ED PE NORMAL - Vitals Vital signs reviewed: Yes - General General: Alert and oriented X 3, No acute distress - HEENT HEENT: PERRL, EOMI - Neck Neck: Supple, no meningeal sign, No bony TTP - Cardiac Cardiac: RRR, No murmur - Respiratory Respiratory: No respiratory distress, Clear bilaterally - Abdomen Abdomen: Soft, Non tender - Back Back: No CVA TTP, No spinal TTP - Derm Derm: Normal color, Warm and dry - Neuro Neuro: Alert and oriented X 3, Normal speech - Psych Psych: Other (Poor eye contact, somewhat disorganized. He is focused on getting his bag back.) Results - Vitals Vitals: Vital Signs - 24 hr 07/30/18 14:14 Temperature 36.4 C L Heart Rate 90 Respiratory 16 Rate Blood Pressure 139/95 H O2 Saturation 99 Oxygen O2 Source Room air - Labs Labs: Laboratory Tests 07/30/18 07/30/18 07/30/18 14:30 14:40 14:40 WBC 3.6 L RBC 5.31 Hgb 16.6 Hct 49.0 MCV 92.3 MCH 31.2 H MCHC 33.8 RDW 13.7 Plt Count 208 MPV 7.4 Neut # (Auto) [employer] Lymph # (Auto) [employer] [place] # (Auto) [employer] Eos # (Auto) [employer] Baso # (Auto) [employer] Absolute Nucleated RBC [employer] Total Counted 100 Band Neuts % (Manual) 7 Reactive Lymphs % (Man) 11 Abnorm Lymph % (Manual) 0 Nucleated RBC % [employer] Neutrophils # (Manual) 0.7 L Lymphocytes # (Manual) 2.7 Monocytes # (Manual) 0.2 Eosinophils # (Manual) 0.0 Basophils # (Manual) 0.0 Differential Comment MANUAL DIFFERENTIAL Platelet Estimate NORMAL (130-450,000) Platelet Morphology NORMAL JONAH RBC Morph Micro Appear NORMAL APPEARANCE Sodium 138 Potassium 3.6 Chloride 103 Carbon Dioxide 26 Anion Gap 9.0 BUN 11 Creatinine 1.2 Estimated GFR (MDRD) 85 L Glucose 90 Calcium 9.0 Total Bilirubin 1.1 H AST 20 ALT 14 Alkaline Phosphatase 67 Total Protein 7.5 Albumin 5.0 Globulin 2.5 Albumin/Globulin Ratio 2.0 Lipase 25 TSH Urine Color DARK YELLOW Urine Clarity CLEAR Urine pH 6.5 Ur Specific [place] >=1.030 H Urine Protein NEGATIVE Urine Glucose (UA) NEGATIVE Urine Ketones 40 H Urine Occult Blood NEGATIVE Urine Nitrite NEGATIVE Urine Bilirubin SMALL H Urine Urobilinogen 0.2 (NORMAL) Ur Leukocyte Esterase NEGATIVE Ur Microscopic Review NOT INDICATED Urine Culture Comments NOT INDICATED Salicylates < 6.0 Urine Opiates Screen NEGATIVE Ur Oxycodone Screen NEGATIVE Urine Methadone Screen NEGATIVE Ur Propoxyphene Screen NEGATIVE Acetaminophen < 10 L Ur Barbiturates Screen NEGATIVE Ur Tricyclics Screen NEGATIVE Ur Phencyclidine Scrn NEGATIVE Ur Amphetamine Screen POSITIVE H U Methamphetamines Scrn POSITIVE H U Benzodiazepines Scrn NEGATIVE Urine Cocaine Screen NEGATIVE U Cannabinoids Screen POSITIVE H Ethyl Alcohol < 5.0 07/30/18 14:40 WBC RBC Hgb Hct MCV MCH MCHC RDW Plt Count MPV Neut # (Auto) Lymph # (Auto) [place] # (Auto) Eos # (Auto) Baso # (Auto) Absolute Nucleated RBC Total Counted Band Neuts % (Manual) Reactive Lymphs % (Man) Abnorm Lymph % (Manual) Nucleated RBC % Neutrophils # (Manual) Lymphocytes # (Manual) Monocytes # (Manual) Eosinophils # (Manual) Basophils # (Manual) Differential Comment Platelet Estimate Platelet Morphology RBC Morph Micro Appear Sodium Potassium Chloride Carbon Dioxide Anion Gap BUN Creatinine Estimated GFR (MDRD) Glucose Calcium Total Bilirubin AST ALT Alkaline Phosphatase Total Protein Albumin Globulin Albumin/Globulin Ratio Lipase TSH 0.22 L Urine Color Urine Clarity Urine pH Ur Specific [place] Urine Protein Urine Glucose (UA) Urine Ketones Urine Occult Blood Urine Nitrite Urine Bilirubin Urine Urobilinogen Ur Leukocyte Esterase Ur Microscopic Review Urine Culture Comments Salicylates Urine Opiates Screen Ur Oxycodone Screen Urine Methadone Screen Ur Propoxyphene Screen Acetaminophen Ur Barbiturates Screen Ur Tricyclics Screen Ur Phencyclidine Scrn Ur Amphetamine Screen U Methamphetamines Scrn U Benzodiazepines Scrn Urine Cocaine Screen U Cannabinoids Screen Ethyl Alcohol PD MEDICAL DECISION MAKING - ED course ED course: 33yo male with schizophrenia here with reported SI/HI. +for meth. Eval by SW- considered to be questionable to be a good rochelle for voluntary and MHP dispatched. Care to Dr Sharma at shift chg to f/u on MHP eval and efforts at placement Departure - Departure Clinical Impression: Methamphetamine abuse Schizophrenia Qualifiers: Schizophrenia type: disorganized schizophrenia Qualified Code(s): F20.1 - Disorganized schizophrenia Condition: Stable Record reviewed to determine appropriate education?: Yes Instructions: ED Paranoid Schizophrenia, ED Drug Abuse General
[2018-07-30 14:42] LABS: MUDS CUTOFF CONCENTRATIONS CUTOFF CONC BELOW:
[2018-07-30 14:46] LABS: GLUCOSE, URINE (UA) NEGATIVE (NEGATIVE); KETONES,URINE (UA) 40 mg/dL (NEGATIVE); LEUKOCYTE ESTERASE, URINE NEGATIVE (NEGATIVE); NITRITE,URINE NEGATIVE (NEGATIVE); OCCULT BLOOD,URINE NEGATIVE (NEGATIVE); PH,URINE 6.5 PH (5.0-7.5); PROTEIN,URINE NEGATIVE (NEGATIVE); UROBILINOGEN,URINE 0.2 (NORMAL) E.U./dL (NORMAL)
[2018-07-30 14:48] LABS: BASOPHILS % (AUTO) 0.9 %; EOSINOPHILS % (AUTO) 1.7 %; HGB - HEMOGLOBIN 16.6 g/dL (14.0-18.0); LYMPHOCYTES % (AUTO) 69.2 %; MEAN CORPUSCULAR HEMOGLOBIN 31.2 pg (27.0-31.0); MEAN CORPUSCULAR HGB CONC 33.8 g/dL (32.0-36.0); MEAN CORPUSCULAR VOLUME 92.3 fL (80.0-94.0); MEAN PLATELET VOLUME 7.4 fL (7.4-11.4); MONOCYTES % (AUTO) 8.9 %; NEUTROPHILS % (AUTO) 19.3 %; PLT - PLATELET COUNT 208 10^3/uL (130-450); RED BLOOD COUNT 5.31 10^6/uL (4.70-6.10); RED CELL DISTRIBUTION WIDTH 13.7 % (12.0-15.0); WHITE BLOOD COUNT 3.6 x10^3/uL (4.8-10.8)
[2018-07-30 15:01] LABS: ACETAMINOPHEN < 10 ug/mL (10-30); ALKALINE PHOSPHATASE 67 IU/L (42-121); ALT ALANINE AMINOTRANSFERASE 14 IU/L (10-60); AST ASPARTATE AMINOTRANSFERASE 20 IU/L (10-42); BILIRUBIN,TOTAL 1.1 mg/dL (0.2-1.0); BUN - BLOOD UREA NITROGEN 11 mg/dL (6-20); CARBON DIOXIDE - CO2 26 mmol/L (21-32); CHLORIDE 103 mmol/L (101-111); CREATININE 1.2 mg/dL (0.6-1.2); GFR - MDRD 85 (>89); GLUCOSE 90 mg/dL (70-100); LIPASE 25 U/L (22-51); SALICYLATE < 6.0 mg/dL; SODIUM 138 mmol/L (135-145); TOTAL PROTEIN 7.5 g/dL (6.7-8.2)
[2018-07-30 15:04] LABS: ABNORMAL LYMPHS % (MANUAL) 0 %
[2018-07-30 15:07] LABS: AMPHETAMINE SCREEN,URINE POSITIVE (NEGATIVE); BENZODIAZEPINES SCREEN, URINE NEGATIVE (NEGATIVE); COCAINE SCREEN URINE NEGATIVE (NEGATIVE); METHADONE SCREEN, URINE NEGATIVE (NEGATIVE); METHAMPHETAMINES SCREEN, URINE POSITIVE (NEGATIVE); OPIATE SCREEN, URINE NEGATIVE (NEGATIVE); OXYCODONE SCREEN, URINE NEGATIVE (NEGATIVE); PROPOXYPHENE SCREEN, URINE NEGATIVE (NEGATIVE); TRICYCLIC ANTIDEPRESSANT,URINE NEGATIVE (NEGATIVE)
[2018-07-30 15:15] LABS: BILIRUBIN,URINE SMALL (NEGATIVE); CLARITY,URINE CLEAR (CLEAR); ICTOTEST,URINE POSITIVE
[2018-07-30 15:21] LABS: NEUTROPHILS % (MANUAL) 13 %
[2018-07-30 15:22] LABS: BAND NEUTROPHILS % (MANUAL) 7 %; LYMPHOCYTES # (MANUAL) 2.7 10^3/uL (1.5-3.5); LYMPHOCYTES % (MANUAL) 63 %; MONOCYTES # (MANUAL) 0.2 10^3/uL (0.0-1.0); NEUTROPHILS # (MANUAL) 0.7 10^3/uL (1.5-6.6)
[2018-07-30 15:25] LABS: PLATELET ESTIMATE, MANUAL NORMAL (130-450,000) (NORMAL)
[2018-07-30 15:44] LABS: DIFFERENTIAL COMMENT MANUAL DIFFERENTIAL; PLATELET MORPHOLOGY NORMAL APP (NORMAL); RBC MORPHOLOGY (MULTIPLE) NORMAL APPEARANCE (NORMAL)
[2018-07-31] MEDS ORDERED: OLANZapine ODT 5 MG TABLET TL ONE (00:35)
--- NOTE | 2018-07-31 00:35 | ED Physician Documentation ---
ED Addendum - Addendum Addendum: 07/31/18 00:33 [facility] DCR, Ronni, was able to find an accepting facility for the patient. However they were not able to accept the patient to physically arrive there until tomorrow at noon. The patient will stay overnight here in the hospital ER. He is accepted at the psychiatric facility but will need to leave tomorrow morning around 9 or 10 in the morning. We can provide further sedation overnight if needed. Right now he is calm and cooperative.
[2018-07-31 02:44] VITALS: BP 103/77
--- NOTE | 2018-07-31 08:02 | ED Physician Documentation ---
ED Addendum - Addendum Addendum: 07/31/18 08:00 assumed care 7 AM 07/31 pt with psychosis SI HI seen yesterday medically cleared by EMP felt to be gravely disable to eval by DCR and placed at [place] due to have EMS arrive for transport at 9 AM pt resting peacefully at this time 07/31/18 08:01
== END 2018-07-31 09:30 ==
LOC: EDUNIT# → ED 14:12
DX: F15.10 Other stimulant abuse, uncomplicated (principal); F20.1 Disorganized schizophrenia; F17.200 Nicotine dependence, unspecified, uncomplicated
CPT/HCPCS: 36415; 80053; 80306; 80307; 80320; 80329; 81001; 81003; 83690; 84443; 85025; 87086; 96372; 99284; 99285

== ENCOUNTER 2020-02-17 20:27 | Outpatient (CLI) | payer MEDICAID | END 2020-02-17 23:59 | disposition critical access hospital (66) | LOC: EMS 20:27 | PROVIDERS: ATTEND Surgery | DX: F41.9 Anxiety disorder, unspecified (principal) | CPT/HCPCS: A0425; A0429; A0999 ==

== ENCOUNTER 2020-02-17 20:44 | Emergency (ER) | payer MEDICAID ==
[2020-02-17 20:56] VITALS: BP 134/92
== END 2020-02-17 21:07 | disposition left against medical advice (07) ==
LOC: EDUNIT# → ED 20:44
DX: Z53.21 Procedure and treatment not carried out due to patient leaving prior to being seen by health care provider (principal)
CPT/HCPCS: 80053; 80307; 80320; 80329; 83690; 84443; 85025

== ENCOUNTER 2020-02-19 05:25 | Emergency (ER) | payer MEDICAID ==
--- NOTE | 2020-02-19 05:27 | ED Physician Documentation ---
<Devyn Marc - Last Filed: 02/19/20 06:49> History of Present Illness - Stated complaint Stated Complaint: MHE - History obtained from History obtained from: Patient (34 Y/O M p/w cc of "i want to talk to a psychiatrist". Will not answer any other questions.) Review of Systems Unable to obtain: Uncooperative PD PAST MEDICAL HISTORY - Past Medical History Cardiovascular: None Respiratory: None Neuro: None Endocrine/Autoimmune: None HEENT: None Psych: Depression, Schizophrenia - Past Surgical History Past Surgical History: No - Present Medications Home Medications: Ambulatory Orders Medication Instructions Recorded Confirmed [place] Aspartate [Lithate] 12/30/14 07/22/15 chlorproMAZINE [Thorazine] 07/22/15 07/22/15 OLANZapine ODT [Zyprexa Odt] 5 mg TL DAILY #10 tablet 11/16/17 OLANZapine [Zyprexa] 10 mg PO DAILY #10 tablet 02/19/20 - Allergies Allergies/Adverse Reactions: Allergies Allergy/AdvReac Type Severity Reaction Status Date / Time No Known Drug Allergies Allergy Verified 07/30/18 14:21 - Social History Does the pt smoke?: Yes Smoking Status: Current every day smoker Does the pt drink ETOH?: Yes Does the pt have substance abuse?: Yes - Immunizations Immunizations are current?: No Immunizations: TDAP >10years/unknown - POLST Patient has POLST: No PD ED PE NORMAL - Vitals Vital signs reviewed: Yes - General General: Alert and oriented X 3, No acute distress, Well developed/nourished, Other - HEENT HEENT: PERRL - Neck Neck: Supple, no meningeal sign - Cardiac Cardiac: RRR, No murmur - Respiratory Respiratory: Clear bilaterally - Abdomen Abdomen: Normal bowel sounds, Soft, Non tender, Non distended - Derm Derm: Warm and dry - Extremities Extremities: No deformity - Neuro Neuro: Alert and oriented X 3 - Psych Psych: Normal mood, Normal affect, Other (when patient was asked to provide blood for medical clearance the patient became verbally aggressive, threatening and abusive.) PD MEDICAL DECISION MAKING - ED course Complexity details: considered differential (plan is for medical clearance and telepsych evaluation. patient is not HI/SI. Patient states hearing voices and would like to speak with a telepsychiatrist.), other (patient signed out at shift change to dr. jose alfredo mcrae.) Departure - Departure Disposition: 01 Home, Self Care Clinical Impression: Schizophrenia Qualifiers: Schizophrenia type: unspecified Qualified Code(s): F20.9 - Schizophrenia, unspecified Condition: Stable Instructions: ED Paranoid Schizophrenia, ED Schizophrenia General Follow-Up: [facility] [Provider Group] Prescriptions: OLANZapine [Zyprexa] 10 mg PO DAILY #10 tablet <Jose Alfredo Mcrae - Last Filed: 02/19/20 17:29> Results - Vitals Vitals: Vital Signs - 24 hr 02/19/20 02/19/20 05:31 13:39 Temperature 36.7 C Heart Rate 64 60 Respiratory 14 18 Rate Blood Pressure 135/95 H 120/69 O2 Saturation 100 100 Oxygen O2 Source Room air - Labs Labs: Laboratory Tests 02/19/20 02/19/20 02/19/20 06:02 06:02 06:02 WBC 5.1 RBC 4.85 Hgb 15.0 Hct 45.4 MCV 93.6 MCH 30.9 MCHC 33.0 RDW 13.9 Plt Count 247 MPV 8.9 Neut # (Auto) 2.2 Lymph # (Auto) 2.3 [facility] # (Auto) 0.5 Eos # (Auto) 0.1 Baso # (Auto) 0.0 Absolute Nucleated RBC 0.00 Nucleated RBC % 0.0 Sodium 140 Potassium 3.6 Chloride 102 Carbon Dioxide 23 Anion Gap 15.0 H BUN 10 Creatinine 0.8 Estimated GFR (MDRD) 134 Glucose 99 Calcium 9.0 Total Bilirubin 0.9 AST 31 ALT 19 Alkaline Phosphatase 68 Total Protein 7.0 Albumin 4.4 Globulin 2.6 Albumin/Globulin Ratio 1.7 Lipase 43 TSH 1.10 Urine Color Urine Clarity Urine pH Ur Specific [place] Urine Protein Urine Glucose (UA) Urine Ketones Urine Occult Blood Urine Nitrite Urine Bilirubin Urine Urobilinogen Ur Leukocyte Esterase Ur Microscopic Review Urine Culture Comments Last Dose Date Last Dose Time Salicylates < 6.0 Urine Opiates Screen Ur Oxycodone Screen Urine Methadone Screen Ur Propoxyphene Screen Acetaminophen < 10 L Ur Barbiturates Screen Ur Tricyclics Screen Ur Phencyclidine Scrn Ur Amphetamine Screen U Methamphetamines Scrn U Benzodiazepines Scrn [place] Urine Cocaine Screen U Cannabinoids Screen Ethyl Alcohol < 5.0 02/19/20 02/19/2002/18/20 06:24 11:29 11:29 WBC RBC Hgb Hct MCV MCH MCHC RDW Plt Count MPV Neut # (Auto) Lymph # (Auto) [facility] # (Auto) Eos # (Auto) Baso # (Auto) Absolute Nucleated RBC Nucleated RBC % Sodium Potassium Chloride Carbon Dioxide Anion Gap BUN Creatinine Estimated GFR (MDRD) Glucose Calcium Total Bilirubin AST ALT Alkaline Phosphatase Total Protein Albumin Globulin Albumin/Globulin Ratio Lipase TSH Urine Color YELLOW Urine Clarity CLEAR Urine pH 6.0 Ur Specific [place] 1.015 Urine Protein NEGATIVE Urine Glucose (UA) NEGATIVE Urine Ketones NEGATIVE Urine Occult Blood NEGATIVE Urine Nitrite NEGATIVE Urine Bilirubin NEGATIVE Urine Urobilinogen 0.2 (NORMAL) Ur Leukocyte Esterase NEGATIVE Ur Microscopic Review NOT INDICATED Urine Culture Comments NOT INDICATED Last Dose Date UNK Last Dose Time UNK Salicylates Urine Opiates Screen NEGATIVE Ur Oxycodone Screen NEGATIVE Urine Methadone Screen NEGATIVE Ur Propoxyphene Screen NEGATIVE Acetaminophen Ur Barbiturates Screen NEGATIVE Ur Tricyclics Screen NEGATIVE Ur Phencyclidine Scrn NEGATIVE Ur Amphetamine Screen POSITIVE H U Methamphetamines Scrn POSITIVE H U Benzodiazepines Scrn NEGATIVE [place] < 0.05 Urine Cocaine Screen NEGATIVE U Cannabinoids Screen POSITIVE H Ethyl Alcohol PD MEDICAL DECISION MAKING - ED course Complexity details: reviewed old records, reviewed results, re-evaluated patient, considered differential, d/w patient ED course: 34-year-old schizophrenic male has come into the emergency department and wants to get back onto his medications he indicates that he has been on Haldol lithium and Benadryl and he does not know the doses of these. He does have a prescription provider who that is been prescribing these. And he does want to talk to a psychiatrist today. We were unable to identify a prescriber or the prescriptions for his medications to find doses. He does have a number of no-shows for his prior appointments. Today he did get good result with the use of Zyprexa and he is requesting this specifically from the psychiatrist on tele-psych. I have spoken with Dr. Dharmesh Fonseca who did the intake on the patient and he indicates the patient was a difficult interview and there is evidence of substance abuse mostly the amphetamine and methamphetamine contributing to the patient's decompensation. He recommends 10 mg of olanzapine daily and to follow-up with [facility].
[2020-02-19] MEDS ORDERED: OLANZapine ODT 5 MG TABLET TL ONE (05:35)
[2020-02-19] MEDS ORDERED: OLANZapine ODT 5 MG TABLET TL STA (05:42)
[2020-02-19 06:31] LABS: BASOPHILS % (AUTO) 0.4 %; EOSINOPHILS # (AUTO) 0.1 10^3/uL (0.0-0.7); LYMPHOCYTES # (AUTO) 2.3 10^3/uL (1.5-3.5); LYMPHOCYTES % (AUTO) 44.5 %; MEAN CORPUSCULAR HEMOGLOBIN 30.9 pg (27.0-31.0); MEAN CORPUSCULAR VOLUME 93.6 fL (80.0-94.0); MEAN PLATELET VOLUME 8.9 fL (7.4-11.4); MONOCYTES # (AUTO) 0.5 10^3/uL (0.0-1.0); MONOCYTES % (AUTO) 8.9 %; NEUTROPHILS # (AUTO) 2.2 10^3/uL (1.5-6.6); PLT - PLATELET COUNT 247 10^3/uL (130-450); RED BLOOD COUNT 4.85 10^6/uL (4.70-6.10); RED CELL DISTRIBUTION WIDTH 13.9 % (12.0-15.0); WHITE BLOOD COUNT 5.1 x10^3/uL (4.8-10.8)
[2020-02-19 06:50] LABS: ACETAMINOPHEN < 10 ug/mL (10-30); ALBUMIN 4.4 g/dL (3.2-5.5); ALBUMIN/GLOBULIN RATIO 1.7 (1.0-2.2); ALKALINE PHOSPHATASE 68 IU/L (42-121); ALT ALANINE AMINOTRANSFERASE 19 IU/L (10-60); AST ASPARTATE AMINOTRANSFERASE 31 IU/L (10-42); BILIRUBIN,TOTAL 0.9 mg/dL (0.2-1.0); BUN - BLOOD UREA NITROGEN 10 mg/dL (6-20); CARBON DIOXIDE - CO2 23 mmol/L (21-32); CHLORIDE 102 mmol/L (101-111); CREATININE 0.8 mg/dL (0.6-1.2); GLUCOSE 99 mg/dL (70-100); LIPASE 43 U/L (22-51); SALICYLATE < 6.0 mg/dL; SODIUM 140 mmol/L (135-145)
[2020-02-19 07:46] LABS: LITHIUM < 0.05 mmol/L
[2020-02-19 11:35] LABS: MUDS CUTOFF CONCENTRATIONS CUTOFF CONC BELOW:
[2020-02-19 11:40] LABS: BILIRUBIN,URINE NEGATIVE (NEGATIVE); GLUCOSE, URINE (UA) NEGATIVE (NEGATIVE); KETONES,URINE (UA) NEGATIVE (NEGATIVE); LEUKOCYTE ESTERASE, URINE NEGATIVE (NEGATIVE); NITRITE,URINE NEGATIVE (NEGATIVE); OCCULT BLOOD,URINE NEGATIVE (NEGATIVE); PROTEIN,URINE NEGATIVE (NEGATIVE); UROBILINOGEN,URINE 0.2 (NORMAL) E.U./dL (NORMAL)
[2020-02-19 11:47] LABS: CLARITY,URINE CLEAR (CLEAR)
[2020-02-19 11:49] LABS: COCAINE SCREEN URINE NEGATIVE (NEGATIVE)
[2020-02-19 11:50] LABS: AMPHETAMINE SCREEN,URINE POSITIVE (NEGATIVE); BENZODIAZEPINES SCREEN, URINE NEGATIVE (NEGATIVE); METHADONE SCREEN, URINE NEGATIVE (NEGATIVE); METHAMPHETAMINES SCREEN, URINE POSITIVE (NEGATIVE); OPIATE SCREEN, URINE NEGATIVE (NEGATIVE); OXYCODONE SCREEN, URINE NEGATIVE (NEGATIVE); PROPOXYPHENE SCREEN, URINE NEGATIVE (NEGATIVE); TRICYCLIC ANTIDEPRESSANT,URINE NEGATIVE (NEGATIVE)
[2020-02-19 14:03] VITALS: BP 120/69
== END 2020-02-19 17:40 | disposition home or self-care (01) ==
LOC: ED 05:25
DX: F20.9 Schizophrenia, unspecified (principal); F17.200 Nicotine dependence, unspecified, uncomplicated
CPT/HCPCS: 36415; 80053; 80178; 80306; 80307; 80320; 80329; 81003; 83690; 84443; 85025; 99281; 99283; A9270; 81001; 87086

== ENCOUNTER 2020-08-15 07:00 | Outpatient (CLI) | payer MEDICAID ==
[2020-08-15 17:52] LABS: BASOPHILS % (AUTO) 0.4 %; EOSINOPHILS # (AUTO) 0.1 10^3/uL (0.0-0.7); EOSINOPHILS % (AUTO) 2.7 %; HGB - HEMOGLOBIN 15.1 g/dL (14.0-18.0); LYMPHOCYTES % (AUTO) 61.9 %; MEAN CORPUSCULAR HEMOGLOBIN 31.4 pg (27.0-31.0); MEAN CORPUSCULAR HGB CONC 33.1 g/dL (32.0-36.0); MEAN CORPUSCULAR VOLUME 94.8 fL (80.0-94.0); MEAN PLATELET VOLUME 10.6 fL (7.4-11.4); MONOCYTES # (AUTO) 0.5 10^3/uL (0.0-1.0); MONOCYTES % (AUTO) 10.9 %; NEUTROPHILS # (AUTO) 1.2 10^3/uL (1.5-6.6); NEUTROPHILS % (AUTO) 23.9 %; PLT - PLATELET COUNT 191 10^3/uL (130-450); RED BLOOD COUNT 4.81 10^6/uL (4.70-6.10); RED CELL DISTRIBUTION WIDTH 13.2 % (12.0-15.0); WHITE BLOOD COUNT 4.9 x10^3/uL (4.8-10.8)
[2020-08-15 18:00] LABS: LITHIUM 0.24 mmol/L
[2020-08-15 18:23] LABS: ALBUMIN 4.5 g/dL (3.2-5.5); ALBUMIN/GLOBULIN RATIO 1.5 (1.0-2.2); BILIRUBIN,TOTAL 0.9 mg/dL (0.2-1.0); CALCIUM 9.2 mg/dL (8.5-10.3); TOTAL PROTEIN 7.5 g/dL (6.7-8.2)
== END 2020-08-15 23:59 | disposition home or self-care (01) ==
LOC: LAB.R 07:00
PROVIDERS: ATTEND Registered Nurse
DX: F20.9 Schizophrenia, unspecified (principal)
CPT/HCPCS: 80053; 80178; 84443; 85025